=== PATIENT | male | born 1950 | race African-American/Black ===

== ENCOUNTER 2018-08-26 09:23 | Inpatient (IN) | payer MEDICARE, MEDICAID ==
[~2018-08-26] VITALS: Ht 198.1 cm; Wt 108.0 kg
[2018-08-26] MEDS ORDERED: SODIUM CHLORIDE 0.9% 1000ML BAG (SEPSIS BOLUS) IV ONE (10:45)
[2018-08-26 11:40] LABS: BASOPHILS % 0.4 % (0.0-2.0); HEMATOCRIT. 36.7 % (42.0-52.0); HEMOGLOBIN. 11.8 g/dL (14.0-18.0); MEAN CORPUSCULAR HEMOGLOBIN 26.8 pg (28.0-32.0); MEAN CORPUSCULAR VOLUME 83.3 fL (80.0-94.0); MONOCYTES % 7.9 % (2.0-8.0); NEUTROPHILS % 81.7 % (40.0-76.0); PLATELET 304 x1000/uL (130-400); RED CELL DISTRIBUTION WIDTH 14.8 % (11.6-14.6)
[2018-08-26 11:46] LABS: CHLORIDE 98 mEq/L (98-107); ETHANOL BLOOD < 10 mg/dL
[2018-08-26] MEDS ORDERED: PIPERACILLIN/TAZ 3.375G PREMIX 50 ML IV ONE (12:45)
[2018-08-26] MEDS ORDERED: CALCIUM GLUCONATE 1,000 MG in DEXT 5% WATER 100 ML IV ONE (12:45)
[2018-08-26] MEDS ORDERED: INSULIN REGULAR (HUMULIN R) 300UNITS/3ML IV ONE ×2 (12:45→13:00)
[2018-08-26] MEDS ORDERED: VANCOMYCIN 1 G PREMIX 200 ML IV ONE (12:45)
[2018-08-26] MEDS ORDERED: ASPIRIN 325MG EC TABLET PO ONE (12:45)
[2018-08-26] MEDS ORDERED: LABETALOL HCL 100MG TABLET PO ONE (13:15)
[2018-08-26 13:31] LABS: CHLORIDE 100 mEq/L (98-107)
[2018-08-26 14:00] VITALS: BP 174/111
[2018-08-26 14:59] VITALS: BP 174/111
[2018-08-26 15:01] LABS: CLARITY URINE CLEAR (CLEAR); COLOR URINE YELLOW (YELLOW); KETONES URINE NEGATIVE (NEGATIVE); LEUKOCYTE ESTERASE URINE NEGATIVE (NEGATIVE); NITRITE URINE NEGATIVE (NEGATIVE); OCCULT BLOOD URINE 2+ (NEGATIVE); PROTEIN URINE 3+ (NEGATIVE); SPECIFIC GRAVITY URINE 1.019 (1.005-1.030); UROBILINOGEN URINE 0.2 E.U./dL (0.2-1.0)
[2018-08-26] MEDS: METOPROLOL TARTRATE 25MG TABLET PO SCH ×2 (15:09→21:36)
[2018-08-26 15:20] LABS: *AMPHETAMINES SCREEN URINE NEGATIVE (NEGATIVE); *BARBITURATES SCREEN URINE NEGATIVE (NEGATIVE); *BENZODIAZEPINES SCREEN URINE NEGATIVE (NEGATIVE); *COCAINE SCREEN URINE NEGATIVE (NEGATIVE); CANNABINOID URINE SCREEN PRESUMTIVE POSITIVE (NEGATIVE); METHADONE URINE SCREEN NEGATIVE (NEGATIVE); OPIATES URINE SCREEN NEGATIVE (NEGATIVE); PHENCYCLIDINE URINE SCREEN NEGATIVE (NEGATIVE)
[2018-08-26 15:45] VITALS: BP 174/111
[2018-08-26 16:00] VITALS: BP 184/118
[2018-08-26] MEDS: CLONIDINE 0.1MG TABLET PO PRN (16:25)
[2018-08-26] MEDS ORDERED: ACETAMINOPHEN 325MG TABLET PO PRN (18:30)
[2018-08-26] MEDS ORDERED: INSULIN GLARGINE UD 100 UNITS/ML SYR SUBCUT NR (18:30)
[2018-08-26] MEDS ORDERED: CLONIDINE 0.1MG TABLET PO PRN (18:30)
[2018-08-26] MEDS ORDERED: DEXTROSE 50% WATER 50ML SYRINGE IV PRN ×2 (18:30)
[2018-08-26] MEDS ORDERED: ONDANSETRON HCL 4MG/2ML INJ IV PRN (18:30)
[2018-08-26] MEDS ORDERED: INSULIN LISPRO 100 UNITS/ML SUBCUT NR (18:45)
[2018-08-26] MEDS: DILTIAZEM HCL 60MG TABLET PO SCH (19:05)
[2018-08-26 20:00] VITALS: BP 173/103
[2018-08-26] MEDS ORDERED: ENOXAPARIN 40MG/0.4ML SYR SUBCUT SCH (20:00)
[2018-08-26] MEDS ORDERED: BLOOD SUGAR DIAGNOSTIC STRIP TEST SCH (21:00)
[2018-08-26] MEDS ORDERED: INSULIN LISPRO 100 UNITS/ML SUBCUT SCH (21:00)
[2018-08-26] MEDS: BLOOD SUGAR DIAGNOSTIC STRIP TEST SCH (21:19)
[2018-08-26] MEDS: INSULIN LISPRO 100 UNITS/ML SUBCUT SCH (21:34)
[2018-08-26] MEDS: SODIUM CHLORIDE 0.9% INJ 3ML FLUSH IVF SCH (21:35)
[2018-08-27] VITALS (11 sets, daily range): BP systolic 116–189; BP diastolic 75–142
[2018-08-27] MEDS: DILTIAZEM HCL 60MG TABLET PO SCH ×4 (00:34→17:46)
[2018-08-27] MEDS: IPRATROPIUM/ALBUTEROL 0.5-3(2.5)MG/3ML NEB INH PRN ×2 (00:41→05:55)
[2018-08-27] MEDS: BLOOD SUGAR DIAGNOSTIC STRIP TEST SCH ×4 (06:15→20:09)
[2018-08-27] MEDS: INSULIN LISPRO 100 UNITS/ML SUBCUT SCH ×4 (06:15→21:20)
[2018-08-27] MEDS: SODIUM CHLORIDE 0.9% INJ 3ML FLUSH IVF SCH ×3 (06:19→22:37)
[2018-08-27 07:00] LABS: BASOPHILS % 0.7 % (0.0-2.0); HEMATOCRIT. 32.6 % (42.0-52.0); HEMOGLOBIN. 10.8 g/dL (14.0-18.0); LYMPHOCYTES % 12.6 % (20.0-50.0); MEAN CORPUSCULAR HEMOGLOBIN 26.9 pg (28.0-32.0); MEAN CORPUSCULAR VOLUME 81.1 fL (80.0-94.0); MEAN PLATELET VOLUME 10.5 fl (7.4-10.4); MONOCYTES % 10.6 % (2.0-8.0); NEUTROPHILS % 75.1 % (40.0-76.0); PLATELET 265 x1000/uL (130-400); RED BLOOD CELL COUNT 4.02 mill/uL (4.7-6.1); RED CELL DISTRIBUTION WIDTH 14.1 % (11.6-14.6)
[2018-08-27 08:20] LABS: CREATINE KINASE MB FRACTION 9.9 ng/mL (0.5-3.6); PHOSPHORUS 3.2 mg/dL (2.5-4.9)
[2018-08-27] MEDS: METOPROLOL TARTRATE 25MG TABLET PO SCH ×2 (09:01→20:07)
[2018-08-27 10:03] LABS: BG BASE EXCESS -7.7 mmol/L (-2.0-2.0); BG CARBOXYHEMOGLOBIN 0.7 % (0.5-1.5); BG DEOXYHEMOGLOBIN 9.7 % (0.0-5.0); BG FRACTION INSPIRED OXYGEN 21; BG HCO3 ACT 17.4 mmol/L (22.0-26.0); BG METHEMOGLOBIN 0.4 % (0.0-1.5); BG OXYGEN SATURATION 90.2 % (92.0-98.5); BG OXYHEMOGLOBIN 89.2 % (94.0-97.0); BG PH 7.326 (7.350-7.450); BG PO2 69.4 mmHg (75.0-100.0); BG SAMPLE SITE RIGHT RADIAL; BG VENT MODE ROOM AIR
[2018-08-27 11:35] LABS: HEPATITIS B SURFACE ANTIGEN NEGATIVE
[2018-08-27 12:01] LABS: HEPATITIS B CORE AB IGM NEGATIVE
[2018-08-27 12:03] LABS: HEPATITIS A AB IGM NEGATIVE (NEGATIVE)
[2018-08-27] MEDS: FUROSEMIDE 40MG/4ML VIAL IVP SCH (12:12)
[2018-08-27 13:33] LABS: CREATINE KINASE 306 IU/L (39-308)
[2018-08-27] MEDS: CLONIDINE 0.1MG TABLET PO PRN (17:45)
[2018-08-27] MEDS: HYDRALAZINE 20MG/ML VIAL IV PRN (18:29)
[2018-08-27] MEDS ORDERED: LORAZEPAM 2MG/ML CPJ IV PRN (18:30)
[2018-08-27] MEDS: ENOXAPARIN 30MG/0.3ML SYR SUBCUT SCH (20:07)
[2018-08-27] MEDS: INSULIN GLARGINE UD 100 UNITS/ML SYR SUBCUT SCH (22:41)
[2018-08-28] VITALS (8 sets, daily range): BP systolic 119–181; BP diastolic 56–96
[2018-08-28] MEDS: DILTIAZEM HCL 60MG TABLET PO SCH ×2 (00:08→05:54)
[2018-08-28] MEDS: SODIUM CHLORIDE 0.9% INJ 3ML FLUSH IVF SCH ×3 (05:46→21:01)
[2018-08-28] MEDS: BLOOD SUGAR DIAGNOSTIC STRIP TEST SCH ×4 (05:59→20:54)
[2018-08-28] MEDS: INSULIN LISPRO 100 UNITS/ML SUBCUT SCH ×5 (06:00→21:18)
[2018-08-28 06:08] LABS: BASOPHILS % 0.9 % (0.0-2.0); EOSINOPHILS % 1.1 % (0.0-5.0); HEMATOCRIT. 36.8 % (42.0-52.0); LYMPHOCYTES % 16.4 % (20.0-50.0); MEAN CORPUSCULAR HEMOGLOBIN 26.6 pg (28.0-32.0); MEAN CORPUSCULAR VOLUME 81.7 fL (80.0-94.0); MEAN PLATELET VOLUME 10.9 fl (7.4-10.4); MONOCYTES % 10.9 % (2.0-8.0); NEUTROPHILS % 70.7 % (40.0-76.0); PLATELET 306 x1000/uL (130-400); RED CELL DISTRIBUTION WIDTH 14.6 % (11.6-14.6)
[2018-08-28] MEDS ORDERED: CALC0.253 MT (06:10)
[2018-08-28] MEDS ORDERED: HYDR-4135 MT (06:10)
[2018-08-28] MEDS ORDERED: CLON0.1T MT (06:10)
[2018-08-28] MEDS ORDERED: FURO40TA5 MT (06:11)
[2018-08-28] MEDS ORDERED: CLOP75TA33 MT (06:13)
[2018-08-28] MEDS ORDERED: LABE300T3 MT (06:14)
[2018-08-28] MEDS ORDERED: ASPI-1158 MT (06:15)
[2018-08-28] MEDS ORDERED: NEPVIT MT (06:15)
[2018-08-28 08:23] LABS: PHOSPHORUS 3.7 mg/dL (2.5-4.9)
[2018-08-28] MEDS: FUROSEMIDE 40MG/4ML VIAL IVP SCH (08:45)
[2018-08-28] MEDS: METOPROLOL TARTRATE 25MG TABLET PO SCH (08:46)
[2018-08-28] MEDS ORDERED: DEXTROSE 50% WATER 50ML SYRINGE IV PRN (09:30)
[2018-08-28] MEDS: NIFEDIPINE XL 60MG TAB PO SCH (10:02)
[2018-08-28] MEDS: CITRIC ACID/SODIUM CITRATE SOLN 30ML UDC PO SCH ×3 (10:02→16:50)
[2018-08-28] MEDS: CARVEDILOL 25MG TABLET PO SCH ×2 (10:30→20:51)
[2018-08-28] MEDS: HYDRALAZINE HCL 25MG TABLET PO SCH ×2 (14:00→21:01)
[2018-08-28] MEDS: HYDRALAZINE 20MG/ML VIAL IV PRN (14:37)
[2018-08-28] MEDS: ENOXAPARIN 30MG/0.3ML SYR SUBCUT SCH (20:51)
[2018-08-28] MEDS: IPRATROPIUM/ALBUTEROL 0.5-3(2.5)MG/3ML NEB INH PRN (21:17)
[2018-08-28] MEDS: INSULIN GLARGINE UD 100 UNITS/ML SYR SUBCUT SCH (22:09)
[2018-08-29] VITALS: BP 126/76
[2018-08-29 04:00] VITALS: BP 131/67
[2018-08-29 05:44] LABS: BASOPHILS % 1.1 % (0.0-2.0); EOSINOPHILS % 2.3 % (0.0-5.0); HEMATOCRIT. 34.8 % (42.0-52.0); HEMOGLOBIN. 11.6 g/dL (14.0-18.0); LYMPHOCYTES % 14.7 % (20.0-50.0); MEAN CORPUSCULAR HEMOGLOBIN 27.3 pg (28.0-32.0); MEAN CORPUSCULAR VOLUME 81.8 fL (80.0-94.0); MEAN PLATELET VOLUME 10.4 fl (7.4-10.4); MONOCYTES % 8.7 % (2.0-8.0); NEUTROPHILS % 73.2 % (40.0-76.0); PLATELET 301 x1000/uL (130-400); RED BLOOD CELL COUNT 4.25 mill/uL (4.7-6.1); RED CELL DISTRIBUTION WIDTH 14.5 % (11.6-14.6)
[2018-08-29] MEDS: SODIUM CHLORIDE 0.9% INJ 3ML FLUSH IVF SCH ×3 (05:46→21:20)
[2018-08-29] MEDS: HYDRALAZINE HCL 25MG TABLET PO SCH ×3 (05:59→21:26)
[2018-08-29] MEDS: BLOOD SUGAR DIAGNOSTIC STRIP TEST SCH ×4 (06:00→21:20)
[2018-08-29] MEDS: INSULIN LISPRO 100 UNITS/ML SUBCUT SCH ×4 (06:23→21:25)
[2018-08-29 07:45] LABS: PHOSPHORUS 4.4 mg/dL (2.5-4.9)
[2018-08-29 08:00] VITALS: BP 163/79
[2018-08-29] MEDS: FUROSEMIDE 40MG/4ML VIAL IVP SCH (08:51)
[2018-08-29] MEDS: NIFEDIPINE XL 60MG TAB PO SCH (08:51)
[2018-08-29] MEDS: CITRIC ACID/SODIUM CITRATE SOLN 30ML UDC PO SCH ×3 (08:51→17:00)
[2018-08-29] MEDS: CARVEDILOL 25MG TABLET PO SCH ×2 (08:52→21:20)
[2018-08-29 12:00] VITALS: BP 140/80
[2018-08-29 16:00] VITALS: BP 139/99
[2018-08-29 16:01] LABS: INR 1.1; PARTIAL THROMBOPLASTIN TIME 32.7 sec (23.4-31.0); PROTHROMBIN TIME 11.4 sec (9.1-11.1)
[2018-08-29 17:36] LABS: VITAMIN B12 SERUM 787 pg/mL (211-911)
[2018-08-29 20:00] VITALS: BP 148/79
[2018-08-29] MEDS: ENOXAPARIN 30MG/0.3ML SYR SUBCUT SCH (21:20)
[2018-08-29] MEDS: INSULIN GLARGINE UD 100 UNITS/ML SYR SUBCUT SCH (21:25)
[2018-08-30] VITALS: BP 162/73
[2018-08-30 04:00] VITALS: BP 157/74
[2018-08-30] MEDS: HYDRALAZINE HCL 25MG TABLET PO SCH (05:42)
[2018-08-30] MEDS: SODIUM CHLORIDE 0.9% INJ 3ML FLUSH IVF SCH ×3 (05:42→22:08)
[2018-08-30] MEDS: BLOOD SUGAR DIAGNOSTIC STRIP TEST SCH ×4 (05:44→22:02)
[2018-08-30] MEDS: INSULIN LISPRO 100 UNITS/ML SUBCUT SCH ×4 (05:44→22:16)
[2018-08-30 07:25] LABS: BASOPHILS % 0.9 % (0.0-2.0); EOSINOPHILS % 4.9 % (0.0-5.0); HEMATOCRIT. 35.6 % (42.0-52.0); HEMOGLOBIN. 11.7 g/dL (14.0-18.0); LYMPHOCYTES % 22.6 % (20.0-50.0); MEAN CORPUSCULAR HEMOGLOBIN 26.9 pg (28.0-32.0); MEAN CORPUSCULAR VOLUME 81.8 fL (80.0-94.0); MEAN PLATELET VOLUME 10.6 fl (7.4-10.4); NEUTROPHILS % 61.6 % (40.0-76.0); PLATELET 324 x1000/uL (130-400); RED BLOOD CELL COUNT 4.35 mill/uL (4.7-6.1); RED CELL DISTRIBUTION WIDTH 14.5 % (11.6-14.6)
[2018-08-30 08:00] VITALS: BP 171/90
[2018-08-30 08:13] LABS: PHOSPHORUS 4.3 mg/dL (2.5-4.9)
[2018-08-30] MEDS: FUROSEMIDE 40MG/4ML VIAL IVP SCH (09:10)
[2018-08-30] MEDS: CITRIC ACID/SODIUM CITRATE SOLN 30ML UDC PO SCH ×3 (09:10→17:31)
[2018-08-30] MEDS: CLONIDINE 0.1MG TABLET PO PRN (09:11)
[2018-08-30] MEDS: NIFEDIPINE XL 60MG TAB PO SCH ×2 (09:12→22:07)
[2018-08-30] MEDS: CARVEDILOL 25MG TABLET PO SCH ×2 (09:12→22:07)
[2018-08-30 12:00] VITALS: BP 141/83
[2018-08-30] MEDS: HYDRALAZINE HCL 50MG TABLET PO SCH ×2 (14:53→22:07)
[2018-08-30 16:00] VITALS: BP 145/76
[2018-08-30] MEDS: ASPIRIN 81MG EC TABLET PO SCH (18:54)
[2018-08-30 20:00] VITALS: BP 157/85
[2018-08-30] MEDS ORDERED: INSULIN GLARGINE UD 100 UNITS/ML SYR SUBCUT SCH (22:00)
[2018-08-30] MEDS: ENOXAPARIN 30MG/0.3ML SYR SUBCUT SCH (22:08)
[2018-08-31] VITALS: BP 143/53
[2018-08-31 04:00] VITALS: BP 119/59
[2018-08-31] MEDS: HYDRALAZINE HCL 50MG TABLET PO SCH ×2 (06:42→14:28)
[2018-08-31] MEDS: BLOOD SUGAR DIAGNOSTIC STRIP TEST SCH ×3 (06:42→17:18)
[2018-08-31] MEDS: SODIUM CHLORIDE 0.9% INJ 3ML FLUSH IVF SCH ×2 (06:42→14:28)
[2018-08-31] MEDS: INSULIN LISPRO 100 UNITS/ML SUBCUT SCH ×2 (06:42→12:15)
[2018-08-31 06:43] LABS: BASOPHILS % 1.1 % (0.0-2.0); HEMATOCRIT. 35.7 % (42.0-52.0); HEMOGLOBIN. 11.5 g/dL (14.0-18.0); LYMPHOCYTES % 18.9 % (20.0-50.0); MEAN CORPUSCULAR HEMOGLOBIN 26.6 pg (28.0-32.0); MEAN CORPUSCULAR VOLUME 82.7 fL (80.0-94.0); MEAN PLATELET VOLUME 10.4 fl (7.4-10.4); MONOCYTES % 10.2 % (2.0-8.0); NEUTROPHILS % 64.8 % (40.0-76.0); PLATELET 288 x1000/uL (130-400); RED BLOOD CELL COUNT 4.32 mill/uL (4.7-6.1); RED CELL DISTRIBUTION WIDTH 14.6 % (11.6-14.6)
[2018-08-31 07:29] LABS: PHOSPHORUS 4.2 mg/dL (2.5-4.9)
[2018-08-31 08:00] VITALS: BP 135/68
[2018-08-31] MEDS: NIFEDIPINE XL 60MG TAB PO SCH (09:10)
[2018-08-31] MEDS: CARVEDILOL 25MG TABLET PO SCH (09:10)
[2018-08-31] MEDS: ASPIRIN 81MG EC TABLET PO SCH (09:11)
[2018-08-31] MEDS: CITRIC ACID/SODIUM CITRATE SOLN 30ML UDC PO SCH ×3 (09:11→17:18)
[2018-08-31] MEDS: FUROSEMIDE 40MG/4ML VIAL IVP SCH (09:11)
[2018-08-31 12:00] VITALS: BP 146/77
[2018-08-31] MEDS ORDERED: POTASSIUM CHLORIDE 20MEQ TABLET SR PO NR (15:15)
[2018-08-31 16:00] VITALS: BP 156/82
[2018-08-31 18:19] VITALS: BP 156/82
[2018-08-31] MEDS ORDERED: ATORVASTATIN CALCIUM 20MG TABLET PO SCH (21:00)
[2018-09-01] MEDS ORDERED: FUROSEMIDE 40MG TABLET PO SCH (09:00)
== END 2018-08-31 19:00 | disposition home health service (06) | DRG 871 ==
LOC: ER 09:23 → 5WST 12:29 → EDBEDREQTM 12:33 → EDBEDREQ 12:33 → EDBEDREQSVC 12:33 → ENRESERV 13:00
PROVIDERS: ADMIT Internal Medicine; ATTEND Internal Medicine
DX: A41.9 Sepsis, unspecified organism (principal); I63.9 Cerebral infarction, unspecified; I21.4 Non-ST elevation (NSTEMI) myocardial infarction; G92 Toxic encephalopathy; N17.9 Acute kidney failure, unspecified; E87.1 Hypo-osmolality and hyponatremia; I42.9 Cardiomyopathy, unspecified; R82.1 Myoglobinuria; I13.2 Hypertensive heart and chronic kidney disease with heart failure and with stage 5 chronic kidney disease, or end stage renal disease; N18.5 Chronic kidney disease, stage 5; I50.42 Chronic combined systolic (congestive) and diastolic (congestive) heart failure; E87.5 Hyperkalemia; D64.9 Anemia, unspecified; E11.22 Type 2 diabetes mellitus with diabetic chronic kidney disease; E11.65 Type 2 diabetes mellitus with hyperglycemia; E78.00 Pure hypercholesterolemia, unspecified; E78.5 Hyperlipidemia, unspecified; F12.90 Cannabis use, unspecified, uncomplicated; I27.20 Pulmonary hypertension, unspecified; Z79.4 Long term (current) use of insulin; Z79.82 Long term (current) use of aspirin; Z82.49 Family history of ischemic heart disease and other diseases of the circulatory system; Z83.3 Family history of diabetes mellitus; Z91.19 Patient's noncompliance with other medical treatment and regimen; Z78.1 Physical restraint status
CPT/HCPCS: 36415; 36600; 70551; 71045; 76770; 80048; 80061; 80305; 82375; 82550; 82553; 82607; 82805; 82962; 83036; 83605; 83735; 84100; 84145; 84153; 84443; 84484; 86705; 86709; 86803; 87340; 93005; 93306; 94640; 96365; 96375; 97162; 99291; G0482; J0360; J0610; J1650; J1815; J1940; J2060; J2543; J3370; J7030; J7060; J7620; A4315; G0103

== ENCOUNTER 2018-10-29 14:05 | Inpatient (IN) | payer MEDICARE, MEDICAID ==
[~2018-10-29] VITALS: Ht 198.1 cm; Wt 120.7 kg
[~2018-10-29 14:05] MED LIST: ASPI-1158 MT; CALC0.253 MT; CLON0.1T MT; CLOP75TA33 MT; FURO40TA5 MT; HYDR-4135 MT; LABE300T3 MT; NEPVIT MT
[2018-10-29] MEDS ORDERED: SODIUM CHLORIDE 0.9% 1,000 ML IV ONE (14:24)
[2018-10-29 16:16] LABS: CHLORIDE 97 mEq/L (98-107)
[2018-10-29 16:18] LABS: INR 1.1; PROTHROMBIN TIME 10.7 sec (9.1-11.1)
[2018-10-29] MEDS ORDERED: SODIUM POLYSTYRENE SULFONATE 15 G/60 ML BOT PO ONE (17:00)
[2018-10-29] MEDS ORDERED: CALCIUM GLUCONATE 1,000 MG in DEXT 5% WATER 100 ML IV ONE (17:00)
[2018-10-29] MEDS ORDERED: ALBUTEROL (0.083%) 2.5MG/3ML NEB HHN SCH (17:00)
[2018-10-29] MEDS ORDERED: DEXTROSE 50% WATER 50ML SYRINGE IV ONE (17:00)
[2018-10-29] MEDS ORDERED: FUROSEMIDE 100MG/10ML VIAL IV ONE (17:00)
[2018-10-29] MEDS ORDERED: INSULIN REGULAR (HUMULIN R) 300UNITS/3ML IV ONE (17:00)
[2018-10-29] MEDS ORDERED: SODIUM POLYSTYRENE SULFONATE 15 G/60 ML BOT PO SCH (17:30)
[2018-10-29] MEDS ORDERED: CALCIUM GLUCONATE 1,000 MG in DEXT 5% WATER 100 ML IV SCH (17:30)
[2018-10-29 17:37] LABS: HEMOGLOBIN. 12.6 g/dL (14.0-18.0); MEAN CORPUSCULAR HEMOGLOBIN 26.2 pg (28.0-32.0); MEAN PLATELET VOLUME 9.9 fl (7.4-10.4); PLATELET 205 x1000/uL (130-400); RED BLOOD CELL COUNT 4.81 mill/uL (4.7-6.1); RED CELL DISTRIBUTION WIDTH 14.4 % (11.6-14.6)
[2018-10-29] MEDS ORDERED: CALCIUM GLUCONATE 100MG/ML 10ML VIAL IV NR (18:00)
[2018-10-29 18:57] LABS: PLATELET ESTIMATE NORMAL
[2018-10-29 19:22] LABS: CLARITY URINE CLEAR (CLEAR); COLOR URINE YELLOW (YELLOW); KETONES URINE TRACE (NEGATIVE); LEUKOCYTE ESTERASE URINE NEGATIVE (NEGATIVE); NITRITE URINE NEGATIVE (NEGATIVE); OCCULT BLOOD URINE 1+ (NEGATIVE); PROTEIN URINE 2+ (NEGATIVE); SPECIFIC GRAVITY URINE 1.012 (1.005-1.030); UROBILINOGEN URINE 0.2 E.U./dL (0.2-1.0)
[2018-10-29] MEDS ORDERED: ACETAMINOPHEN 325MG TABLET PO PRN (20:45)
[2018-10-29] MEDS ORDERED: ONDANSETRON HCL 4MG/2ML INJ IV PRN (20:45)
[2018-10-29] MEDS ORDERED: LABETALOL 5MG/ML SYR 20 MG/4 ML SYRINGE IV ONE (20:45)
[2018-10-29] MEDS ORDERED: INSULIN REGULAR (HUMULIN R) 300UNITS/3ML SUBCUT ONE (20:45)
[2018-10-29] MEDS ORDERED: MAGNESIUM/ALUMINUM HYDROXIDE/SIMETHICONE 30ML UDC PO PRN (20:45)
[2018-10-29] MEDS ORDERED: LABETALOL HCL 20MG/4ML CARPUJECT IV NR (20:45)
[2018-10-29] MEDS ORDERED: HYDRALAZINE 20MG/ML VIAL IV PRN (21:00)
[2018-10-29] MEDS ORDERED: HYDRALAZINE 20MG/ML VIAL IV NR (21:00)
[2018-10-29] MEDS: CLONIDINE 0.1MG TABLET PO PRN (21:25)
[2018-10-29] MEDS ORDERED: DEXTROSE 50% WATER 50ML SYRINGE IV PRN (21:45)
[2018-10-29 22:25] VITALS: BP 199/95
[2018-10-29] MEDS ORDERED: INSULIN GLARGINE UD 100 UNITS/ML SYR SUBCUT SCH (23:30)
[2018-10-29] MEDS: SODIUM CHLORIDE 0.9% INJ 3ML FLUSH IVF SCH (23:37)
[2018-10-29] MEDS: NIFEDIPINE XL 60MG TAB PO SCH (23:37)
[2018-10-30] VITALS (7 sets, daily range): BP systolic 137–194; BP diastolic 67–91
[2018-10-30] MEDS ORDERED: HYDRALAZINE 20MG/ML VIAL IV PRN (01:30)
[2018-10-30] MEDS: CLONIDINE 0.1MG TABLET PO PRN (03:46)
[2018-10-30] MEDS: BLOOD SUGAR DIAGNOSTIC STRIP TEST SCH ×2 (06:26→21:28)
[2018-10-30] MEDS: SODIUM CHLORIDE 0.9% INJ 3ML FLUSH IVF SCH ×3 (06:48→21:30)
[2018-10-30] MEDS: INSULIN LISPRO 100 UNITS/ML SUBCUT SCH ×4 (06:50→21:26)
[2018-10-30 08:39] LABS: BASOPHILS % 0.7 % (0.0-2.0); EOSINOPHILS % 1.3 % (0.0-5.0); HEMATOCRIT. 36.8 % (42.0-52.0); HEMOGLOBIN. 12.1 g/dL (14.0-18.0); LYMPHOCYTES % 8.7 % (20.0-50.0); MEAN CORPUSCULAR HEMOGLOBIN 26.5 pg (28.0-32.0); MEAN PLATELET VOLUME 10.9 fl (7.4-10.4); MONOCYTES % 8.9 % (2.0-8.0); NEUTROPHILS % 80.4 % (40.0-76.0); PLATELET 218 x1000/uL (130-400); RED BLOOD CELL COUNT 4.55 mill/uL (4.7-6.1); RED CELL DISTRIBUTION WIDTH 14.3 % (11.6-14.6)
[2018-10-30] MEDS ORDERED: FUROSEMIDE 40MG/4ML VIAL IVP SCH (09:00)
[2018-10-30] MEDS: ASPIRIN 81MG EC TABLET PO SCH (10:24)
[2018-10-30] MEDS: HYDRALAZINE HCL 50MG TABLET PO SCH ×2 (10:25→21:28)
[2018-10-30] MEDS: CARVEDILOL 25MG TABLET PO SCH ×2 (10:25→21:28)
[2018-10-30] MEDS ORDERED: SODIUM CHLORIDE 0.45% 1,000 ML IV SCH (11:00)
[2018-10-30] MEDS: NIFEDIPINE XL 60MG TAB PO SCH (12:16)
[2018-10-30] MEDS ORDERED: ATORVASTATIN CALCIUM 20MG TABLET PO SCH (21:00)
[2018-10-30] MEDS: ATORVASTATIN CALCIUM 20MG TABLET PO SCH (21:27)
[2018-10-31] VITALS: BP 162/72
[2018-10-31] MEDS: INSULIN GLARGINE UD 100 UNITS/ML SYR SUBCUT SCH ×2 (00:26→20:39)
[2018-10-31] MEDS: NIFEDIPINE XL 60MG TAB PO SCH ×2 (00:27→12:49)
[2018-10-31 04:00] VITALS: BP 170/73
[2018-10-31] MEDS: SODIUM CHLORIDE 0.9% INJ 3ML FLUSH IVF SCH ×3 (05:11→20:43)
[2018-10-31] MEDS: BLOOD SUGAR DIAGNOSTIC STRIP TEST SCH ×4 (06:35→20:42)
[2018-10-31 06:49] LABS: EOSINOPHILS % 4.8 % (0.0-5.0); HEMATOCRIT. 33.6 % (42.0-52.0); HEMOGLOBIN. 11.3 g/dL (14.0-18.0); LYMPHOCYTES % 11.6 % (20.0-50.0); MEAN CORPUSCULAR HEMOGLOBIN 26.9 pg (28.0-32.0); MEAN CORPUSCULAR VOLUME 79.9 fL (80.0-94.0); MEAN PLATELET VOLUME 10.4 fl (7.4-10.4); MONOCYTES % 11.9 % (2.0-8.0); NEUTROPHILS % 70.7 % (40.0-76.0); PLATELET 208 x1000/uL (130-400); RED CELL DISTRIBUTION WIDTH 14.1 % (11.6-14.6)
[2018-10-31] MEDS: INSULIN LISPRO 100 UNITS/ML SUBCUT SCH ×4 (06:56→20:38)
[2018-10-31 07:11] LABS: CHLORIDE 103 mEq/L (98-107)
[2018-10-31 07:54] LABS: PHOSPHORUS 4.4 mg/dL (2.5-4.9)
[2018-10-31] MEDS: CARVEDILOL 25MG TABLET PO SCH ×2 (09:42→20:41)
[2018-10-31] MEDS: ASPIRIN 81MG EC TABLET PO SCH (09:43)
[2018-10-31] MEDS: HYDRALAZINE HCL 50MG TABLET PO SCH (09:43)
[2018-10-31 12:00] VITALS: BP 154/74
[2018-10-31] MEDS ORDERED: HYDROCODONE/APAP 7.5/325MG 1 TAB TABLET PO PRN (12:00)
[2018-10-31 16:00] VITALS: BP 146/89
[2018-10-31 20:00] VITALS: BP 160/68
[2018-10-31 20:07] VITALS: BP 160/68
[2018-10-31] MEDS: ATORVASTATIN CALCIUM 20MG TABLET PO SCH (20:41)
[2018-10-31] MEDS: HYDRALAZINE HCL 100MG TABLET PO SCH (20:42)
[2018-11-01] VITALS: BP 145/66
[2018-11-01] MEDS: NIFEDIPINE XL 60MG TAB PO SCH ×2 (01:00→11:53)
[2018-11-01 04:00] VITALS: BP 170/75
[2018-11-01 06:25] VITALS: BP 155/86
[2018-11-01] MEDS: BLOOD SUGAR DIAGNOSTIC STRIP TEST SCH ×2 (06:32→11:58)
[2018-11-01] MEDS: SODIUM CHLORIDE 0.9% INJ 3ML FLUSH IVF SCH ×2 (06:40→12:03)
[2018-11-01] MEDS: INSULIN LISPRO 100 UNITS/ML SUBCUT SCH ×2 (06:41→11:59)
[2018-11-01 06:47] LABS: BASOPHILS % 0.8 % (0.0-2.0); HEMATOCRIT. 36.8 % (42.0-52.0); HEMOGLOBIN. 12.3 g/dL (14.0-18.0); LYMPHOCYTES % 13.2 % (20.0-50.0); MEAN CORPUSCULAR HEMOGLOBIN 26.7 pg (28.0-32.0); MEAN PLATELET VOLUME 10.1 fl (7.4-10.4); MONOCYTES % 11.6 % (2.0-8.0); NEUTROPHILS % 69.4 % (40.0-76.0); PLATELET 244 x1000/uL (130-400); RED CELL DISTRIBUTION WIDTH 14.4 % (11.6-14.6)
[2018-11-01 07:30] VITALS: BP 183/81
[2018-11-01] MEDS: CARVEDILOL 25MG TABLET PO SCH (08:47)
[2018-11-01] MEDS: ASPIRIN 81MG EC TABLET PO SCH (08:47)
[2018-11-01] MEDS: HYDRALAZINE HCL 100MG TABLET PO SCH (08:47)
[2018-11-01] MEDS: CLONIDINE 0.1MG TABLET PO PRN (11:54)
[2018-11-01 12:00] VITALS: BP 186/106
[2018-11-01 12:50] VITALS: BP 159/81
== END 2018-11-01 13:30 | disposition left against medical advice (07) | DRG 70 ==
LOC: ER 14:17 → EDBEDREQ 17:23 → ENRESERV 19:38 → 8WST 22:28
PROVIDERS: ADMIT Internal Medicine; ATTEND Internal Medicine
DX: G93.41 Metabolic encephalopathy (principal); I50.23 Acute on chronic systolic (congestive) heart failure; N17.9 Acute kidney failure, unspecified; I13.2 Hypertensive heart and chronic kidney disease with heart failure and with stage 5 chronic kidney disease, or end stage renal disease; I43 Cardiomyopathy in diseases classified elsewhere; N18.5 Chronic kidney disease, stage 5; D63.8 Anemia in other chronic diseases classified elsewhere; E11.22 Type 2 diabetes mellitus with diabetic chronic kidney disease; E11.51 Type 2 diabetes mellitus with diabetic peripheral angiopathy without gangrene; F12.90 Cannabis use, unspecified, uncomplicated; E78.5 Hyperlipidemia, unspecified; E87.5 Hyperkalemia; I70.209 Unspecified atherosclerosis of native arteries of extremities, unspecified extremity; W19.XXXA Unspecified fall, initial encounter; Z53.21 Procedure and treatment not carried out due to patient leaving prior to being seen by health care provider; Y92.009 Unspecified place in unspecified non-institutional (private) residence as the place of occurrence of the external cause; Z82.3 Family history of stroke; Z82.49 Family history of ischemic heart disease and other diseases of the circulatory system; Z83.3 Family history of diabetes mellitus; Z86.73 Personal history of transient ischemic attack (TIA), and cerebral infarction without residual deficits; Z89.429 Acquired absence of other toe(s), unspecified side; Z91.15 Patient's noncompliance with renal dialysis; Z79.82 Long term (current) use of aspirin; Z79.899 Other long term (current) drug therapy
CPT/HCPCS: 36415; 70551; 71045; 73562; 73590; 73610; 73630; 80048; 82962; 83605; 83735; 83880; 84100; 84484; 93923; 93970; 94640; 96361; 96372; 96374; 96375; 97162; 97167; 99285; J0360; J0610; J1815; J1940; J3490; J7030; J7060; J7611